=== PATIENT | female | born 1955 | race African-American/Black ===

== ENCOUNTER 2017-05-12 07:35 | Observation (INO) ==
[2017-05-11 11:12] LABS: INR 0.99; PROTIME 10.4 Seconds (9.2-11.7)
[2017-05-11 11:17] LABS: BASO% 0.8 % (0.0-0.8); EOS# 0.13 X1000 (0.0-0.7); EOS% 1.3 % (0.0-10.0); HEMATOCRIT 40.7 % (37.0-47.0); HEMOGLOBIN 13.8 g/dL (12.0-16.0); LYMPH% 19.1 % (20.5-51.1); MANUAL DIFF NEEDED? NO; MCH 26.4 PG (27-31); MCHC 33.9 g/dL (33-37); MONO# 0.69 X1000 (0.11-0.59); MONO% 6.9 % (1.7-9.3); NEUT% 71.9 % (42.2-75.2); PLT 257 X1000 (130-400); RBC 5.22 XMIL (4.2-5.4)
[2017-05-11 11:19] LABS: AGAP 11; ALBUMIN 4.2 g/dL (3.5-5.0); ALKALINE PHOSPHATASE 63 U/L (32-104); BUN 13 mg/dL (8-22); CALCIUM 9.2 mg/dL (8.8-10.2); CHLORIDE 100 mmol/L (98-107); COSMO 280; GOT 16 U/L (10-30); GPT 14 U/L (10-36); POTASSIUM 4.6 mmol/L (3.5-5.1); SODIUM 138 mmol/L (136-145); TCO2 27 mmol/L (25-35); TOTAL BILIRUBIN 0.25 mg/dL (0.20-1.00); TOTAL PROTEIN 6.8 g/dL (6.3-8.3)
[2017-05-12 17:07] VITALS: BP 160/90
== END 2017-05-12 18:35 | disposition short-term general hospital (02) ==
LOC: 3S 07:35 → PAT 07:35
PROVIDERS: ADMIT Internal Medicine Cardiovascular Disease; ATTEND Internal Medicine Cardiovascular Disease